=== PATIENT | male | born 1960 | race Caucasian/White ===

== ENCOUNTER 2018-08-06 08:26 | Observation (INO) | payer OTHER ==
[~2018-08-06 08:26] MED LIST: BACITRACIN 50,000 UNITS/10 ML SYR IRR ONE; BUPIVACAINE/EPI 0.25% 30 ML SDV ONE; CHLORHEXIDINE GLUC HIBICLENS 118 ML BTL TP ONE; FLUTICASONE NASAL 120 SPRAYS/16 GM MDI EACHNARE PRN; THROMBIN (BOVINE) 5,000 UNIT VIAL TP ONE; ZOLPIDEM TARTRATE 5 MG TAB PO PRN
[2018-08-06] MEDS ORDERED: ACETAMINOPHEN 500 MG TAB PO ONE (08:43)
[2018-08-06] MEDS ORDERED: GABAPENTIN 300 MG CAP PO ONE (08:43)
[2018-08-06] MEDS ORDERED: ceFAZolin 2 GM/DEXTROSE 100 ML IV ONE (08:43)
[2018-08-06] MEDS ORDERED: LIDOCAINE 1% 2 ML INJ ID PRN (08:44)
[2018-08-06] MEDS ORDERED: LR 1,000 ML IV ONE (08:44)
[2018-08-06] MEDS ORDERED: oxyCODONE IR 5 MG TAB PO PRN (10:24)
[2018-08-06] MEDS ORDERED: fentaNYL 100 MCG/2 ML INJ IVP PRN (10:24)
[2018-08-06] MEDS ORDERED: NALOXONE HCL 0.4 MG/ML INJ IVP PRN (10:24)
[2018-08-06] MEDS ORDERED: HYDROmorphONE/DILAUDID 1 MG/ML INJ IVP PRN ×2 (10:24→10:31)
[2018-08-06] MEDS ORDERED: LR 500 ML IV PRN (10:24)
[2018-08-06] MEDS ORDERED: ONDANSETRON 4 MG/2 ML VIAL IVP PRN ×2 (10:24→10:31)
[2018-08-06] MEDS ORDERED: ALBUTEROL 3 ML DEYVIAL IH PRN (10:24)
[2018-08-06] MEDS ORDERED: PROMETHAZINE HCL 25 MG/ML INJ IVP PRN (10:24)
[2018-08-06] MEDS ORDERED: MIDAZOLAM 2 MG/2 ML VIAL IVP ONE (10:24)
[2018-08-06] MEDS ORDERED: diphenhydrAMINE 25 MG CAP PO PRN (10:31)
[2018-08-06] MEDS ORDERED: LACTULOSE 20 GM/30 ML UDCUP PO PRN (10:31)
[2018-08-06] MEDS ORDERED: METHOCARBAMOL 750 MG TAB PO PRN (10:31)
[2018-08-06] MEDS ORDERED: MAGNESIUM HYDROXIDE 30 ML UDCUP PO PRN (10:31)
[2018-08-06] MEDS ORDERED: BISACODYL 10 MG SUPP PR PRN (10:31)
[2018-08-06] MEDS ORDERED: ONDANSETRON DISINTEGRATING 4 MG TAB PO PRN (10:31)
[2018-08-06] MEDS ORDERED: HYDROmorphONE/DILAUDID 2 MG/ML INJ ONE (10:31)
[2018-08-06] MEDS ORDERED: POLYETHYLENE GLYCOL 3350 17 GM PKT PO PRN (10:31)
[2018-08-06] MEDS ORDERED: PROPOFOL/EMULSION 500 MG/50 ML BOTTLE IV ONE (10:31)
[2018-08-06] MEDS ORDERED: ROCURONIUM 50 MG/5 ML VIAL ONE (10:32)
[2018-08-06] MEDS ORDERED: MIDAZOLAM 2 MG/2 ML VIAL ONE (10:32)
[2018-08-06] MEDS ORDERED: LIDOCAINE 2% 5 ML SDV ONE (10:35)
[2018-08-06] MEDS ORDERED: NS 1,000 ML IV SCH (10:45)
[2018-08-06] MEDS ORDERED: DEXAMETHASONE 4 MG/ML VIAL ONE (10:45)
[2018-08-06] MEDS ORDERED: BUPIVACAINE/EPI 0.25% 30 ML SDV ONE (11:16)
[2018-08-06] MEDS ORDERED: DEPO METHYLPREDNISOLONE 40 MG/ML SDV ONE (12:29)
[2018-08-06] MEDS ORDERED: LABETALOL HCL 5 MG/ML 20 ML MDV ONE (13:41)
[2018-08-06] MEDS: LABETALOL HCL 5 MG/ML 20 ML MDV IVP PRN ×3 (13:43→14:23)
[2018-08-06] MEDS ORDERED: ceFAZolin 2 GM/DEXTROSE 100 ML IV SCH (14:00)
[2018-08-06] MEDS: GABAPENTIN 300 MG CAP PO SCH ×2 (16:35→21:25)
[2018-08-06] MEDS: ACETAMINOPHEN 500 MG TAB PO SCH ×2 (16:35→23:53)
[2018-08-06] MEDS: ceFAZolin 2 GM/DEXTROSE 100 ML IV SCH (19:36)
[2018-08-06] MEDS ORDERED: GLUCOSAMINE SULF 500 MG CAP PO SCH (21:00)
[2018-08-06] MEDS ORDERED: ATORVASTATIN CALCIUM 10 MG TAB PO SCH (21:00)
[2018-08-06] MEDS: FAMOTIDINE 20 MG TAB PO SCH (21:25)
[2018-08-06] MEDS: SENNOSIDES/DOCUSATE SODIUM TAB PO SCH (21:25)
[2018-08-07] MEDS: ceFAZolin 2 GM/DEXTROSE 100 ML IV SCH (03:11)
[2018-08-07] MEDS: GABAPENTIN 300 MG CAP PO SCH (05:28)
[2018-08-07] MEDS: SENNOSIDES/DOCUSATE SODIUM TAB PO SCH (08:24)
[2018-08-07] MEDS: ACETAMINOPHEN 500 MG TAB PO SCH (08:24)
[2018-08-07] MEDS: FAMOTIDINE 20 MG TAB PO SCH (08:24)
[2018-08-09] MEDS ORDERED: ENOXAPARIN 40 MG/0.4 ML SYR SC SCH (09:00)
== END 2018-08-07 10:51 | disposition home or self-care (01) ==
DX: M51.17 Intervertebral disc disorders with radiculopathy, lumbosacral region (principal); G47.33 Obstructive sleep apnea (adult) (pediatric)
CPT/HCPCS: 63030; 76000; 97161; 97165; G0378